=== PATIENT | female | born 1980 | race Caucasian/White ===

== ENCOUNTER 2017-08-26 17:18 | Emergency (ER) | payer OTHER | END 2017-08-26 19:43 | disposition home or self-care (01) | LOC: ERS 17:18 | DX: O99.612 Diseases of the digestive system complicating pregnancy, second trimester (principal); K02.9 Dental caries, unspecified; F31.9 Bipolar disorder, unspecified; F17.210 Nicotine dependence, cigarettes, uncomplicated; Z3A.22 22 weeks gestation of pregnancy | CPT/HCPCS: 99282 ==

== ENCOUNTER 2017-11-19 21:33 | Day surgery (SDC) | payer OTHER ==
[2017-11-19 22:06] VITALS: BMI 38.7
[2017-11-19 22:34] LABS: Amnisure Internal Control QC ACCEPTABLE (ACCEPTABLE); Amnisure Test No Membranes Rupture (No Rupture)
--- NOTE | 2017-11-19 23:04 | PDOC.LDHP ---
Labor and Delivery H&P Chief complaint: loss of fluid HPI: 37 yo at 35.5 here with concern for loss of fluid at 1730 today. She states that she was walking around the grocery and noticed increased moisture as compared to normal. She denies antwan loss of fluid, bleeding, decreased movement, persistent contractions, or abdominal pain. Her has been complicated thus far by AMA and Rh negative blood type. Pt rhogam on 09/23 Current gestational age (weeks): 35 (35.5) Due date: 12/19/17 Grav: 6 Para: 5 Current complications: other (AMA) Current medications: pre-iron vitamins Social history: none - Physical Exam General: NAD Heart: RRR Lungs: CTAB Abdomen: gravid Extremeties: no edema FHT: category 1, variability present, absent or minimal variables [place] contractions every: rare - OB Labs Blood type: B RH: negative (s/p rhogam on 10/03/17) Antibody Screen: negative HIV: negative RPR: negative HEPSAg: negative 1 hour GCT: negative GBS: unknown Rubella: non-immune - Assessment 1. Late , not in labor 2. AMA 3. Rh negative blood type - Plan Plan: observation in L&D -: Pt has been on monitoring for over 20 minutes with a cat 1 strip for the duration of observation period. FHT baseline 130, moderate variability, no decels, acels present. Amnisure is negative Give labor precautions, and discharge home. Follow up at clinic as previously scheduled. <Gregg Verduzco - Last Filed: 11/19/17 23:01> <Мария Kirkpatrick - Last Filed: 11/19/17 23:27> Allergies/Adverse Reactions: Allergies Allergy/AdvReac Type Severity Reaction Status Date / Time codeine Allergy Verified 11/19/17 22:07 Attending Addendum - Attending Addendum Date/Time: 11/19/17 0463 I personally evaluated the patient and discussed the management with Dr. Verduzco I agree with the History, Examination, Assessment and Plan documented above with any addition or exceptions noted below- 37 yo @35 5/7 weeks presented c/o increased wetness/discharge. Concerned that her bag of water may have ruptured. (+) FM. Denies any ctx, VB. Afebrile VSS Category 1 FHTs. Occasional ctx. Amnisure- negative. A/P: IUP @ 35 5/7 weeks no evidence of rupture. Reassuring FHTs. D/c home and f/u @[facility] as scheduled. <Мария Kirkpatrick - Last Filed: 11/19/17 23:27>
== END 2017-11-19 23:20 | disposition home or self-care (01) ==
LOC: L&D/OP 21:33
PROVIDERS: ATTEND Family Medicine
DX: O99.89 Other specified diseases and conditions complicating pregnancy, childbirth and the puerperium (principal); N89.8 Other specified noninflammatory disorders of vagina; Z3A.35 35 weeks gestation of pregnancy; Z79.899 Other long term (current) drug therapy; Z88.5 Allergy status to narcotic agent
CPT/HCPCS: 84112; 99283

== ENCOUNTER → 2017-12-01 | Day surgery (SDC) | payer OTHER ==
[2017-12-01 15:01] VITALS: BMI 38.7
[2017-12-01 16:05] LABS: Amnisure Test No Membranes Rupture (No Rupture)
[2017-12-01 16:06] LABS: Amnisure Internal Control QC ACCEPTABLE (ACCEPTABLE)
--- NOTE | 2017-12-01 16:11 | PDOC.LDHP ---
Labor and Delivery H&P Chief complaint: contractions, loss of fluid HPI: Patient is a 37yo at 37.3wks by LMP (03/14/17) c/w 10.2wk US who presents with contractions and "constant moisture" since this AM. States yesterday was an emotional and rough day for her because she was in family court. It didn't go the way she liked and was very distraught about it. She smoked a few cigarettes yesterday and wants to make sure baby is okay. Endorses occasional contractions, "constant moisture" and pelvic discomfort that started this AM. States she would go to the restroom to make sure she was not having any incontinence and that was the cause of the moisture, but she continued to haveit throughout the day so she came in to make sure she is not ruptured. No vaginal discharge. +FM. Due date: 12/19/17 Dating criteria: last menstrual period (c/w 10w2d US) Grav: 6 Para: 4 OB History Details: - Rh negative s/p Rhogam at 28wks on 10/03/17. - Grandmultiparity - Tobacco use in - AMA - Rubella non-immune: MMR post- - Hx of cervical dysplasia : NILM (2015), HPV unknown. - GBS negative. Current complications: other (Rh negative (s/p Rhogam at 28wks on 10/03)) Abnormal US findings: No Past Medical History: Hx of Depression Current medications: pre- vitamins Previous surgical history: cholecystectomy, other (tonsillectomy, removal of wisdom teeth) Social history: tobacco use (reports a few cigarettes during this ) - Physical Exam Vital signs reviewed and normal: yes General: NAD Heart: RRR Lungs: nonlabored breathing Abdomen: NTTP Extremeties: no edema FHT: category 1, variability present - Vaginal Exam cm dilated: 0 (fingertip) Effacement: 0% Station: -3 - OB Labs RH: negative GBS: negative Rubella: non-immune - Plan Plan: other -: 37yo @ 37.3wks by LMP c/w 10.2wk US who p/w: 1. Contractions and possible LOF. Aminsure negative. Currently patient with minimal contractions. Category 1 strip: 130s/moderate variability/ +accels/ no decels. SVE fingertip/thick/-3. Records without any labs and PNC closed today and patient left her yellow card in the car. Provided reassurance. Follow-up at [facility] next Monday (12/05/17). 2. Rh negative. S/p Rhogam at 28wks. 3. Multiparity. 4. AMA. 5. Tobacco use in . 6. Rubella immune- needs MMR post-. <Khushi Trujillo - Last Filed: 12/01/17 16:35> <Мария Kirkpatrick - Last Filed: 12/01/17 16:43> Allergies/Adverse Reactions: Allergies Allergy/AdvReac Type Severity Reaction Status Date / Time codeine Allergy Mild Verified 12/01/17 15:00 Attending Addendum - Attending Addendum Date/Time: 12/01/17 1641 I personally evaluated the patient and discussed the management with Dr. aJnak Trujillo I agree with the History, Examination, Assessment and Plan documented above with any addition or exceptions noted below- 37 yo @ 37 3/7 weeks presents c/o LOF and occasional ctx. (+) FM. Denies VB. Amnisure negative. Category 1 FHTs. ctx q50 minutes. No evidence of ROM and not in labor. D/c home as per resident's orders. <Мария Kirkpatrick - Last Filed: 12/01/17 16:43>
== END | disposition home or self-care (01) ==
LOC: L&D/OP 14:24
PROVIDERS: ATTEND Family Medicine
DX: O47.1 False labor at or after 37 completed weeks of gestation (principal); O09.523 Supervision of elderly multigravida, third trimester; O99.333 Smoking (tobacco) complicating pregnancy, third trimester; F17.210 Nicotine dependence, cigarettes, uncomplicated; Z3A.37 37 weeks gestation of pregnancy; Z79.899 Other long term (current) drug therapy
CPT/HCPCS: 84112

== ENCOUNTER 2017-12-14 20:01 | Inpatient (IN) | payer OTHER ==
[2017-12-14 21:02] VITALS: BMI 38.4
[2017-12-14] MEDS ORDERED: Promethazine HCl 25 MG/ML VIAL IM PRN (21:44)
[2017-12-14] MEDS ORDERED: Acetaminophen 500 MG TAB PO PRN (21:44)
[2017-12-14] MEDS ORDERED: Labetalol HCl 100 MG/20 ML VIAL SLOW IVP PRN (21:44)
[2017-12-14] MEDS ORDERED: Ondansetron HCl/PF 4 MG/2 ML Vial IVP PRN (21:44)
[2017-12-14] MEDS ORDERED: Docusate 100 MG CAP PO PRN (21:44)
[2017-12-14] MEDS ORDERED: Ibuprofen 800 MG TAB PO PRN (21:44)
[2017-12-14] MEDS ORDERED: Lidocaine 1% (PF) 30 ML VIAL SC PRN (21:44)
[2017-12-14] MEDS ORDERED: NS / Oxytocin 40 units/1000ml 1,000 ML IV PRN (21:44)
[2017-12-14] MEDS ORDERED: Lactated Ringer's 1,000 ML IV SCH (21:45)
--- NOTE | 2017-12-14 21:57 | PDOC.LDHP ---
Labor and Delivery H&P Chief complaint: contractions HPI: 37 yo @ 39.2 by LMP and 10.2 week sono, rubella non-immune, Rh negative s/p rhogam 10/03/2017 presents for painful contraction every 3-5 minutes that started earlier today. Pt reports some bloody show, but denies lof. Reports good movement. Denies headache, sob, nvdc, cp, changes in vision. Reports lower abdominal pressure and painful contractions. Current gestational age (weeks): 39 (+2) Due date: 12/19/17 Dating criteria: last menstrual period, first trimester ultrasound Grav: 6 Para: 4 ([id number]) OB History Details: RH negative, Rubella non-immune, advanced maternal age Current complications: other (rubella nonimmune, RH neagtive, h/o smoking early in ) Current medications: pre-iron vitamins Previous surgical history: cholecystectomy, other (tonsillectomy, wisdom tooth extraction) Allergies/Adverse Reactions: Allergies Allergy/AdvReac Type Severity Reaction Status Date / Time codeine Allergy Mild Verified 12/14/17 20:58 Social history: tobacco use (early in , quit during first trimester) - Physical Exam Abnormal vital signs: elevated BP 130s-140s General: NAD, breathing through contractions Heart: RRR Lungs: nonlabored breathing Abdomen: NTTP Extremeties: no edema FHT: category 1, variable decelerations, variability present [place] contractions every: 3-5min - Vaginal Exam cm dilated: 3 Effacement: 75% Station: -2 - OB Labs Blood type: B RH: negative Antibody Screen: negative HIV: negative RPR: negative HEPSAg: negative 1 hour GCT: negative GBS: negative Urine drug screen: not done Rubella: non-immune - Assessment L&D Assessment: term patient in labor - Plan Plan: admit to L&D -: Plan was for induction of labor; however, During the process of completing this H&P the patient made significant change and delivered precipitously via @ 2220 to a viable M, EBL 200mL, APGARS 9&9 , no lacs, and placenta delivered via lane mechanism intact w/ 3 vessel cord.
[2017-12-14 22:02] LABS: Hemoglobin 14.1 g/dL (12.0-16.0); Mean Corpuscular HGB CONC 35.5 g/dL (32.0-36.0); Mean Corpuscular Hemoglobin 30.2 pg (27.0-31.0); Mean Corpuscular Volume 85.1 fl (81.0-99.0); Mean Platelet Volume 9.2 fL (7.4-10.4); Platelet Count 164 thou/uL (130-400); RBC Distribution Width 12.1 % (11.5-14.5); Red Blood Cell (RBC) Count 4.68 mill/uL (4.20-5.40); White Blood Cell (WBC) Count 11.6 thou/uL (4.8-10.8)
[2017-12-14 22:17] LABS: ALT (SGPT) 24 U/L (8-55); AST (SGOT) 20 U/L (5-34); Albumin 4.1 g/dL (3.5-5.0); Alkaline Phosphatase 235 U/L (40-150); Anion Gap 15 mmol/L (10-20); BUN (Urea Nitrogen) 6 mg/dL (7.0-18.7); Bilirubin, Total 0.4 mg/dL (0.2-1.2); Calc. Creatinine Clearance 205 mL/min (70-130); Calcium 9.5 mg/dL (7.8-10.44); Carbon Dioxide 21 mmol/L (22-29); Chloride 102 mmol/L (98-107); Estimated GFR-MDRD Greater than 90; Globulin 3.2 g/dL (2.4-3.5); Glucose 72 mg/dL (70-105); Potassium 3.9 mmol/L (3.5-5.1); Protein, Total 7.3 g/dL (6.0-8.3); Sodium 134 mmol/L (136-145)
[2017-12-14] MEDS ORDERED: NS / Oxytocin 40 units/1000ml 1,000 ML ONE (22:19)
[2017-12-14] MEDS ORDERED: Lidocaine 1% (PF) 30 ML VIAL ONE (22:19)
[2017-12-14 22:39] LABS: Syphilis Antibody Nonreactive (Nonreactive); Syphilis Antibody Index 0.05 S/CO (<1.00 Non-Reactive)
--- NOTE | 2017-12-14 22:51 | PDOC.OPDEL ---
OB Operative/Delivery Note Delivery Dr/Surgeon: Lluvia Assist: Bobby Pre-Delivery Diagnosis: active labor Procedure/Post Delivery Dx: spontaneous vaginal delivery Weeks gestation: 39 (+2) Anesthesia: none - Additional Findings/Plan Placenta delivered: spontaneous Repaired Obstetrical Laceration: none Estimated blood loss: 200mL Compilations/Other Findings: @ 39.2 via lmp and 1st tri US w/ RH negative, rubella nonimmune, ama delivered a viable male infant via @ 2220 w/ apgars 9&9, position OA over intact perineum without epidural anesthesia. Clear amniotic fluid, no nuchal cord. Spontaneous delivery of intact placenta via lane with 3-vessel cord. No lacerations. EBL 200mL. Post delivery plan: routine recovery
[2017-12-14 23:24] LABS: HBSAg Index 0.19 S/CO (0-0.99); Hep B Surf Ag Non-Reactive S/CO (NonReactive)
[2017-12-15] MEDS ORDERED: Bisacodyl 10 MG SUPP PR PRN (01:24)
[2017-12-15] MEDS ORDERED: NS / Oxytocin 40 units/1000ml 1,000 ML IV SCH (01:24)
[2017-12-15] MEDS ORDERED: Ondansetron HCl/PF 4 MG/2 ML Vial IVP PRN (01:24)
[2017-12-15] MEDS ORDERED: Milk Of Magnesia 30 ML UDCUP PO PRN (01:24)
[2017-12-15] MEDS ORDERED: Benzocaine/Menthol 20-0.5% 60 ML CAN TOP PRN (01:24)
[2017-12-15] MEDS ORDERED: Promethazine HCl 25 MG/ML VIAL IM PRN (01:24)
[2017-12-15] MEDS ORDERED: Lanolin Ointment 7 GM TUBE TOP PRN (01:24)
[2017-12-15] MEDS ORDERED: Preparation H Ointment 28 GM TUBE PR PRN (01:24)
[2017-12-15] MEDS ORDERED: Adacel (T-DAP) 0.5 ML VIAL IM ONE (01:45)
[2017-12-15] MEDS: Ibuprofen 800 MG TAB PO SCH ×4 (02:05→18:00)
[2017-12-15] MEDS ORDERED: Acetaminophen 500 MG TAB PO PRN (06:03)
--- NOTE | 2017-12-15 08:06 | PDOC.PP ---
Post Progress Note Post Day #: 1 Subjective: Patient doing very well. She reports some cramping abdominal pain and lochia that is similar to a light period. She has not eaten yet, but has just ordered breakfast and is feeling hungry. She denies flatus or BM. She has ambulated without difficulty. She is breast feeding without difficulty. PO intake tolerated: no (Has not tried yet) Flatus: no Ambulation: yes Vital Signs (12 hours) Temp Pulse Resp BP 12/15/17 03:25 98.0 F 75 18 127/77 12/15/17 02:00 98.0 F 75 20 128/67 12/15/17 00:55 97.5 F L 69 20 132/71 Weight Weight 107.955 kg - Physical Examination General: NAD Cardiovascular: no m/r/g, RRR Respiratory: clear to auscultation bilaterally, non-labored breathing Abdominal: + bowel sounds, lochia (similar to light period), no distention, appropriately TTP Fundus firm & at: 2 cm below the umbilicus Extremities: negative homans (B) Skin: no rash Psychiatric: A&Ox3, normal affect Result Diagrams: 12/14/17 21:02 12/14/17 21:02 Additional Labs: Post Labs Blood Type B NEGATIVE 12/14/17 21:02 Hep Bs Antigen Non-Reactive S/CO (NonReactive) 12/14/17 21:02 (1) Term delivered Code(s): O80 - ENCOUNTER FOR FULL-TERM UNCOMPLICATED DELIVERY Status: Acute Comment: 37 y/o ->5 delivered @ 39.2 WGA via -Continue routine post- care -Ibuprofen for pain control -Continue PNV -Encourage breast feeding -Encourage ambulation -Regular diet -Plans for Essure vs IUD for contraception (2) Rh negative, delivered, current hospitalization Code(s): O26.899 - OTH RELATED CONDITIONS, UNSPECIFIED TRIMESTER; Z67.91 - UNSPECIFIED BLOOD TYPE, RH NEGATIVE Status: Acute Comment: B- maternal blood type, s/p Rhogam at 28 WGA. is also B-, so no need for Rhogam at this time. (3) Rubella nonimmune status, delivered, current hospitalization Code(s): O99.89 - OTH DISEASES AND CONDITIONS COMPL PREG/CHLDBRTH; Z28.3 - UNDERIMMUNIZATION STATUS Status: Acute Comment: Will give MMR vaccine (4) AMA (advanced maternal age) multigravida 35+ Code(s): O09.529 - SUPERVISION OF ELDERLY MULTIGRAVIDA, UNSPECIFIED TRIMESTER Status: Acute QualifierTitle: Trimester: unspecified trimester Qualified Code(s): O09.529 - Supervision of elderly multigravida, unspecified trimester (5) Tobacco use complicating Code(s): O99.330 - SMOKING (TOBACCO) COMPLICATING , UNSP TRIMESTER Status: Acute QualifierTitle: Trimester: unspecified trimester Qualified Code(s): O99.330 - Smoking (tobacco) complicating , unspecified trimester Comment: Tobacco use during early , but reports cessation early on during . -Encourage continued cessation even after delivery <Taylor Siegel - Last Filed: 12/15/17 08:04> Vital Signs (12 hours) Temp Pulse Resp BP 12/15/17 03:25 98.0 F 75 18 127/77 12/15/17 02:00 98.0 F 75 20 128/67 12/15/17 00:55 97.5 F L 69 20 132/71 Weight Weight 107.955 kg Result Diagrams: 12/14/17 21:02 12/14/17 21:02 Additional Labs: Post Labs Blood Type B NEGATIVE 12/14/17 21:02 Hep Bs Antigen Non-Reactive S/CO (NonReactive) 12/14/17 21:02 <Eliana Dillard - Last Filed: 12/15/17 10:48> Attending Addendum - Attending Addendum Date/Time: 12/15/17 1047 I personally evaluated the patient and discussed the management with Dr. Siegel on 12/15/17. I agree with the History, Examination, Assessment and Plan documented above with any addition or exceptions noted below. Patient doing well, pain controlled. Discussed risks of co-sleeping. Requests plastibell circumcision for son. Is 24 hours tonight, so will likely need to stay until tomorrow morning. <Eliana Dillard - Last Filed: 12/15/17 10:48>
[2017-12-15] MEDS: Ferrous Sulfate 325 MG TAB PO SCH ×2 (08:55→18:01)
[2017-12-15] MEDS: Prenatal Vitamin 1 TAB PO SCH (09:21)
[2017-12-15] MEDS: Docusate Calcium (SURFAK) 240 MG CAP PO SCH ×2 (09:21→21:18)
[2017-12-15] MEDS ORDERED: Measles/Mumps/Rubella 10 MCG/0.5 ML VIAL SC ONE (10:00)
[2017-12-16] MEDS: Ibuprofen 800 MG TAB PO SCH ×2 (02:00→08:32)
[2017-12-16 03:49] VITALS: TEMP 98.3
[2017-12-16 08:17] VITALS: BP 111/58
[2017-12-16] MEDS: Ferrous Sulfate 325 MG TAB PO SCH (08:22)
[2017-12-16] MEDS: Prenatal Vitamin 1 TAB PO SCH (08:32)
[2017-12-16] MEDS: Docusate Calcium (SURFAK) 240 MG CAP PO SCH (08:32)
--- NOTE | 2017-12-16 08:56 | PDOC.PP ---
Post Progress Note Post Day #: 2 Subjective: Patient doing very well. Sleeping well, ambulating, tolerating PO, +flatus. Breast feeding without difficulty. PO intake tolerated: yes Flatus: yes Ambulation: yes Vital Signs (12 hours) Temp Pulse Resp BP 12/16/17 07:45 97.8 F 72 16 111/58 L Weight Weight 107.955 kg - Physical Examination General: NAD Cardiovascular: no m/r/g, RRR Respiratory: clear to auscultation bilaterally, non-labored breathing Abdominal: + bowel sounds, lochia, no distention, appropriately TTP Fundus firm & at: 2 cm below the umbilicus Extremities: negative homans (B) Neurological: no gross focal deficits Psychiatric: A&Ox3, normal affect Result Diagrams: 12/14/17 21:02 12/14/17 21:02 Additional Labs: Post Labs Blood Type B NEGATIVE 12/14/17 21:02 Hep Bs Antigen Non-Reactive S/CO (NonReactive) 12/14/17 21:02 (1) Term delivered Code(s): O80 - ENCOUNTER FOR FULL-TERM UNCOMPLICATED DELIVERY Status: Acute Comment: 37 y/o ->5 delivered @ 39.2 WGA via -Continue routine post- care -Ibuprofen for pain control -Continue PNV -Encourage breast feeding -Encourage ambulation -Regular diet -Plans for Essure vs IUD for contraception (2) Rh negative, delivered, current hospitalization Code(s): O26.899 - OTH RELATED CONDITIONS, UNSPECIFIED TRIMESTER; Z67.91 - UNSPECIFIED BLOOD TYPE, RH NEGATIVE Status: Acute Comment: B- maternal blood type, s/p Rhogam at 28 WGA. [place] is also B-, so no need for Rhogam at this time. (3) Rubella nonimmune status, delivered, current hospitalization Code(s): O99.89 - OTH DISEASES AND CONDITIONS COMPL PREG/CHLDBRTH; Z28.3 - UNDERIMMUNIZATION STATUS Status: Acute Comment: Received MMR vaccine post- (4) AMA (advanced maternal age) multigravida 35+ Code(s): O09.529 - SUPERVISION OF ELDERLY MULTIGRAVIDA, UNSPECIFIED TRIMESTER Status: Acute QualifierTitle: Trimester: unspecified trimester Qualified Code(s): O09.529 - Supervision of elderly multigravida, unspecified trimester (5) Tobacco use complicating Code(s): O99.330 - SMOKING (TOBACCO) COMPLICATING , UNSP TRIMESTER Status: Acute QualifierTitle: Trimester: unspecified trimester Qualified Code(s): O99.330 - Smoking (tobacco) complicating , unspecified trimester Comment: Tobacco use during early , but reports cessation early on during . -Encourage continued cessation even after delivery - Assessment/Plan Plan for d/c today with f/u in 4-6 weeks <Taylor Siegel - Last Filed: 12/16/17 08:54> Vital Signs (12 hours) Temp Pulse Resp BP 12/16/17 07:45 97.8 F 72 16 111/58 L Weight Weight 107.955 kg Result Diagrams: 12/14/17 21:02 12/14/17 21:02 Additional Labs: Post Labs Blood Type B NEGATIVE 12/14/17 21:02 Hep Bs Antigen Non-Reactive S/CO (NonReactive) 12/14/17 21:02 <Trace Montalvo - Last Filed: 12/16/17 11:02> Attending Addendum - Attending Addendum Date/Time: 12/16/17 1101 I personally evaluated the patient and discussed the management with Dr. Siegel. I agree with and repeated the History, Examination, Assessment and Plan documented above with any addition or exceptions noted below. Plan for d/c today. Has f/u for BC. <Trace Montalvo - Last Filed: 12/16/17 11:02>
== END 2017-12-16 13:20 | disposition home or self-care (01) | DRG 775 ==
LOC: L&D 20:01 → 3SW 12-15 01:19
PROVIDERS: ADMIT Family Medicine; ATTEND Family Medicine
PROC: 10E0XZZ Delivery of Products of Conception, External Approach (ICD-10-PCS; principal; 2017-12-14)
PROC: 3E0234Z Introduction of Serum, Toxoid and Vaccine into Muscle, Percutaneous Approach (ICD-10-PCS; 2017-12-16)
DX: O62.3 Precipitate labor (principal); O99.334 Smoking (tobacco) complicating childbirth; F17.210 Nicotine dependence, cigarettes, uncomplicated; Z3A.39 39 weeks gestation of pregnancy; Z37.0 Single live birth; Z23 Encounter for immunization
CPT/HCPCS: 80053; 85027; 86780; 86850; 86900; 86901; 87340; 90707; J0595; J2001

== ENCOUNTER 2019-12-27 14:45 | Outpatient (CLI) | payer MEDICAID ==
--- NOTE | 2019-12-27 17:56 | ULT ---
TRANSABDOMINAL AND TRANSVAGINAL PELVIC ULTRASOUND: 12/27/19 INDICATION: History of Essure device placement two years ago with sharp pelvic pain bilaterally for three months. COMPARISON: CT of the abdomen and pelvis with contrast dated 12/27/[address] [facility]. FINDINGS: The uterus measures 8.7 x 6.1 x 5.1 cm. The endometrial stripe is 1.1 cm. There are echogenic foci se en within the superolateral margins of the uterus likely reflecting the patient's known Essure device s. One of the echogenic focus in the left aspect of the superolateral uterus does project within the endometrial canal of the fundus. The small echogenic focus within the right superolateral aspect of t he uterus remains in the region of the cornua. There is a 1.8 x 1.4 x 2.3 cm fibroid within the left aspect of the uterine fundus. There is mild free fluid in the pelvis seen within the cul-de-sac of Pramod. The left ovary measures 2.7 x 2.7 x 1.5 cm and demonstrates normal vascular flow. The right adnexa wa s not well seen. IMPRESSION: 1. Echogenic foci seen within the superior lateral aspect of the uterus likely corresponding to the patient's Essure devices. The Essure implant on the left projects within the lumen of the endome trial canal at the fundus. 2. Single fibroid within the left aspect of the uterine fundus. 3. Normal appearing appearance of the left ovary. 4. Nonvisualization of the right ovary. 5. Mild free fluid in the pelvis is likely physiologic. 6. If the patient continues to have clinical symptomatology, further evaluation with CT of the p kamron with IV contrast and enteric contrast may be helpful for improved characterization of positioni ng of the Essure devices. POS: [facility]
== END 2019-12-27 14:46 | disposition home or self-care (01) ==
LOC: BICULT 14:45
PROVIDERS: ATTEND Nurse Practitioner Family
DX: R10.2 Pelvic and perineal pain (principal); D25.9 Leiomyoma of uterus, unspecified
CPT/HCPCS: 76856

== ENCOUNTER 2021-08-23 14:38 | Emergency (ER) | payer MEDICAID | END 2021-08-23 17:19 | disposition left against medical advice (07) | LOC: ERS 14:38 | DX: Z53.21 Procedure and treatment not carried out due to patient leaving prior to being seen by health care provider (principal) | CPT/HCPCS: 93005 ==